=== PATIENT | female | born 1950 | race Caucasian/White ===

== ENCOUNTER 2022-05-23 23:20 | Observation (INO) ==
[2022-05-24 01:09] LABS: BUN/Creatinine Ratio 17 (6-26); Blood Urea Nitrogen 20 mg/dL (8-23); Calcium 8.9 mg/dL (8.6-10.3); Carbon Dioxide 27 mEq/L (23-29); Chloride 99 mEq/L (98-107); Glucose 100 mg/dL (70-105); Osmolality,Calculated 277 (280-300); Potassium 3.6 mEq/L (3.5-5.1); Sodium 132 mEq/L (136-145)
[2022-05-24 01:10] LABS: Basophils % 0.5 %
[2022-05-24 01:11] LABS: Troponin I < 0.03 ng/mL (< 0.04)
[2022-05-24 01:21] LABS: Hemoglobin 14.2 g/dL (11.5-15.4); Mean Corpuscular Volume 93.6 fL (83.0-100.0); Red Cell Distribution Width 11.7 % (11.5-14.5)
[2022-05-24 01:23] LABS: Eosinophils # 0.3 K/mcL (0.0-0.6); Hematocrit 42.5 % (35.3-44.9); Immature Granulocytes % 0.4 % (0-4); Immature Platelets 7.1 % (1.1-6.1); Lymphocytes # 2.7 K/mcL (0.6-4.6); Lymphocytes % 31.4 %; Mean Corpuscular HGB Conc 33.4 g/dL (31.6-35.5); Mean Corpuscular Hemoglobin 31.3 pg (28.0-33.3); Mean Platelet Volume 11.5 fL (9.4-12.4); Monocytes # 0.9 K/mcL (0.0-1.3); Monocytes % 10.5 %; Neutrophils # 4.5 K/mcL (1.6-8.9); Platelet Count 169 K/mcL (140-400); Red Blood Count 4.54 M/mcL (3.82-4.97); Segmented Neutrophils % 53.2 %; White Blood Count 8.5 K/mcL (4.3-11.1)
[2022-05-24 01:25] LABS: Thyroid Stimulating Hormone 9.156 mcIU/mL (0.340-5.600)
[2022-05-24 01:33] LABS: INR 0.9; Prothrombin Time 10.3 Seconds (9.4-12.1)
[2022-05-24 01:36] LABS: Activated Partial Thrombo Time 31.5 Seconds (26.0-36.0)
[2022-05-24 01:55] LABS: Large Platelets Present (Not Present); Platelet Estimate Normal (Normal)
[2022-05-24] MEDS ORDERED: Ondansetron 4 MG/2 ML VIAL IVP PRN (03:23)
[2022-05-24] MEDS ORDERED: Naloxone 0.4 MG/ML INJ IVP PRN (03:23)
[2022-05-24] MEDS ORDERED: Aspirin 325 MG TABLET PO ONE (04:39)
[2022-05-24] MEDS ORDERED: *HR* Heparin 5,000 UNIT/ML VIAL IVP PRN ×2 (04:42)
[2022-05-24] MEDS: Heparin 25,000UNIT/250ML 1/2NS 25,000 UNIT/250 ML IV.SOLN IVC SCH (06:40)
[2022-05-24] MEDS: *HR* Heparin 5,000 UNIT/ML VIAL IVP ONE ×2 (06:49→07:01)
[2022-05-24 06:57] LABS: Troponin I < 0.03 ng/mL (< 0.04)
[2022-05-24] MEDS ORDERED: Gabapentin 300 MG CAPSULE PO PRN (14:17)
[2022-05-24] MEDS ORDERED: Levothyroxine 25 MCG TABLET PO SCH (14:30)
[2022-05-24] MEDS ORDERED: lisinopriL 20 MG TABLET PO SCH (21:00)
[2022-05-25] MEDS: Heparin 25,000UNIT/250ML 1/2NS 25,000 UNIT/250 ML IV.SOLN IVC SCH (05:26)
[2022-05-25 06:26] LABS: Magnesium 2.1 mg/dL (1.6-2.6); Potassium 3.8 mEq/L (3.5-5.1)
[2022-05-25] MEDS ORDERED: Levothyroxine 25 MCG TABLET PO SCH (06:30)
[2022-05-25 06:41] VITALS: TEMP 98
[2022-05-25] MEDS ORDERED: Regadenoson 0.4 MG/5 ML SYRINGE IVP ONE (07:18)
[2022-05-25] MEDS ORDERED: FLUoxetine 20 MG CAPSULE PO SCH (09:00)
[2022-05-25 11:37] LABS: INR 1.1
[2022-05-25 12:20] VITALS: BP 161/89; PULSE 57; O2SAT 95
[2022-05-25] MEDS ORDERED: Apixaban 5 MG TABLET PO SCH (13:00)
[2022-05-25] MEDS ORDERED: Warfarin perPT PO PRN (18:00)
[2022-05-26] MEDS ORDERED: Levothyroxine 25 MCG TABLET PO SCH (06:30)
== END 2022-05-25 16:42 | disposition home or self-care (01) ==
LOC: EMEROOARM 23:20 → 2ANU 23:20
PROVIDERS: ADMIT Internal Medicine; ATTEND Internal Medicine